=== PATIENT | female | born 1945 | race Caucasian/White ===

== ENCOUNTER 2022-03-25 12:39 | Emergency (ER) | payer OTHER ==
[2022-03-25 12:45] VITALS: BP 148/75; PULSE 107; TEMP 97.8; BMI 25.8
[2022-03-25] MEDS ORDERED: ACETAMINOPHEN 500 MG TABLET (FP) PO ONE (13:37)
[2022-03-25] MEDS ORDERED: ACETAMINOPHEN 500 MG TABLET (FP) ONE (13:42)
== END 2022-03-25 14:52 | disposition home or self-care (01) ==
LOC: JER 12:39 → JERFT 12:39
DX: M13.80 Other specified arthritis, unspecified site (principal)
CPT/HCPCS: 73110-TC-RT-FY; 73130-TC-RT-FY; 99284-25